=== PATIENT | male | born 1980 | race Caucasian/White ===

== ENCOUNTER 2021-03-03 12:22 | Observation (INO) | payer BC, SELFPAY ==
[2021-03-03] VITALS (10 sets, daily range): BP systolic 104–146; BP diastolic 65–86; PULSE 73–93; RESP 14–18; TEMP 36.6–37.3; O2SAT 93–98
[2021-03-03] MEDS: Normal Saline 1,000 ML 1000 ML IV (13:00)
--- NOTE | 2021-03-03 13:01 | ED.GENADUL_ITS ---
Discharge Plan Disposition Patient Disposition: [facility] INPATIENT Condition: Stable Discharge Details Clinical Impression: Intractable back pain Admit Date/Time: 03/03/21 16:42 Admit Provider: Corwin Pelayo Attending Provider: Corwin Pelayo Primary Care Provider: None,None ED Provider: Kaya Carrillo Discharge Data Discharge Date/Time-TO BE ENTERED AT DEPARTURE: 03/03/21 17:30 Medical Decision Making 41-year-old male with history of kidney stones presents with lower back pain for the past 5 days that is worse with movement. Denies any fever, vomiting or urinary symptoms. No cauda equina symptoms. Patient appears uncomfortable. He has reproducible pain with any movement in the wheelchair. He has bilateral paraspinal tenderness in the lumbar and sacral region. No focal deficits. Neurovascular intact. Suspect his etiology is most likely musculoskeletal but also consider kidney stones. Will place an IV, bolus IV fluids, screening labs, urinalysis, CT renal colic. Will give Toradol, Decadron, Valium and reassess. Patient reassessed and no improvement in pain. Will give a dose of morphine. Labs reviewed. Normal white blood cell count and electrolytes. Normal renal function. Urinalysis notes blood but no infection. CT reviewed and negative. Patient reassessed and no improvement in pain. Patient given a dose of Dilaudid and Valium and no improvement. Attempted to ambulate but unable. Patient had severe pain with even attempting to lift the head of the stretcher up. Patient is unable to even move in the bed without severe pain. He is still moving all of his extremities and no cauda equina symptoms or focal deficits. Will admit for intractable back pain for pain control and PT evaluation. Case discussed with hospitalist accepts patient for admission. Order an additional dose of Dilaudid, dose of Valium IV and another dose of Toradol IV. Patient is agreeable with plan for admission. Medical Records Medical records reviewed: Yes I reviewed the patient's medical records. Imaging Data Radiologic Study: Radiologist's impression: CT Abdomen And Pelvis Without Contrast Exam date and time: 03/03/2021 1:32 PM Age: 41 years old Clinical indication: Other: Lower back pain, h/o kidney stone, R/O stone, assess lumbar spine; Patient HX: Lower back pain, h/o kidney stone, R/O stone, assess lumbar spine TECHNIQUE: Imaging protocol: Computed tomography of the abdomen and pelvis without contrast. COMPARISON: No relevant prior studies available. FINDINGS: Lungs: The visualized lung bases are clear. Liver: Mild generalized hepatic steatosis. Anterior inferior right liver simple 1.4 cm oval hepatic cyst. Gallbladder and bile ducts: Normal. No calcified stones. No ductal dilation. Pancreas: Normal. No ductal dilation. Spleen: Normal. No splenomegaly. Adrenal glands: Normal. No mass. Kidneys and ureters: No renal, ureteral, or urinary bladder calculus. No hydronephrosis. Stomach and bowel: Sigmoid diverticulosis without evidence for acute diverticulitis. No bowel obstruction. Appendix: Appendix is normal in caliber. No periappendiceal edema. No findings to suggest acute appendicitis. Intraperitoneal space: Unremarkable. No free air. No significant fluid collection. Vasculature: Unremarkable. No abdominal aortic aneurysm. Lymph nodes: Unremarkable. No enlarged lymph nodes. Urinary bladder: Unremarkable as visualized. Reproductive: Unremarkable as visualized. Bones/joints: Five non rib-bearing lumbar vertebral bodies identified. No spondylolysis or spondylolisthesis. The vertebral body heights are preserved. No acute compression fracture. The disc spaces are well preserved. No lytic or blastic osseous lesion. Incidental note is made of a sclerotic bone island in the right ilium and additional punctate bone islands in the left ilium. Soft tissues: Unremarkable. IMPRESSION: 1. No acute intra-abdominal or pelvic finding. 2. No acute osseous findings in the lumbar spine. Lab Data Lab results reviewed: Yes I reviewed the patient's lab results. Labs: 03/03/21 13:05 Urine - Reflex from Ua Urine Culture - Pending Laboratory Tests Range/Units 03/03/21 03/03/21 03/03/21 12:45 12:45 13:05 WBC (4.4-10.8) 10^3/uL 7.42 RBC (4.36-5.78) 10^6/uL 5.24 Hgb (13.5-17.5) g/dL 15.3 Hct (40.0-50.0) % 46.1 MCV (80-95) fL 88.0 MCH (27.0-33.0) pg 29.2 MCHC (32.0-36.0) % 33.2 RDW (11.8-14.1) % 12.5 Plt Count (130-400) 10^3/uL 276 MPV (8.0-11.0) fL 10.1 Immature Gran % 0.4 Neutrophils % 54.7 Lymphocytes % 34.2 Monocytes % 7.5 Eosinophils % 2.4 Basophils % 0.8 Nucleated RBC % % 0 Absolute Neutrophils (1.2-6.7) 10^3/uL 4.05 Absolute Lymphocytes (1.2-3.4) 10^3/uL 2.54 Absolute Monocytes (0.1-0.8) 10^3/uL 0.56 Absolute Eosinophils (0.0-0.7) 10^3/uL 0.18 Absolute Basophils (0.0-0.2) 10^3/uL 0.06 Sodium (136-145) mmol/L 141 Potassium (3.5-5.1) mmol/L 4.2 Chloride (98-107) mmol/L 104 Carbon Dioxide (21.0-32.0) mmol/L 26.9 Anion Gap (3-11) mmol/L 10.1 BUN (7-18) mg/dL 10 Creatinine (0.70-1.30) mg/dL 1.1 Estimated GFR/1.73 m2 (mL/min/1.73m2) >= 60.00 Glucose (74-106) mg/dL 99 Calcium (8.5-10.1) mg/dL 9.2 Total Bilirubin (0.2-1.0) mg/dL 0.4 AST (15-37) U/L 20 ALT (16-63) U/L 52 Alkaline Phosphatase (46-116) U/L 81 Total Protein (6.4-8.2) g/dL 7.5 Albumin (3.4-5.0) g/dL 4.4 Lipase (73-393) U/L 82 Urine Color (Yellow) Yellow Urine Clarity (Clear) Clear Urine pH (5-8) 5.5 Ur Specific [place] (1.005-1.025) >= 1.030 H Urine Protein (Negative) mg/dL Negative Urine Ketones (Negative) mg/dL Negative Urine Blood (Negative) Small H Urine Nitrite (Negative) Negative Urine Bilirubin (Negative) Negative Urine Urobilinogen (Up TO 0.2) EU/dL 0.2 Ur Leukocyte Esterase (Negative) Negative Urine RBC (0-2) HPF 5-10 H Urine WBC (0-5) HPF 0-2 Ur Epithelial Cells (Negative) HPF Few Urine Crystals (Negative) HPF Negative Urine Bacteria (Negative) HPF Few Urine Casts (Negative) LPF Negative Urine Mucus (Negative) Heavy Ur Culture Indicated? Yes Urine Glucose (Negative) mg/dL Negative HPI General Mode of arrival: wheelchair . Date/Time Provider Initiated Documentation: 03/03/21 12:55 . Limitations to Documentation: no limitations . Information obtained by: patient . HPI Narrative: Patient is a 41-year-old male with a history of kidney stones who presents with lower back pain for the past 5 days. Patient states his pain is across his lower back and into his upper buttocks bilaterally. He denies any radiation of pain to his legs, leg weakness or numbness, bowel or bladder incontinence, saddle anesthesia. He denies any known injury. He states his pain is worse with movement and walking and states he has been unable to walk due to pain for the past few hours. He denies fever, nausea, vomiting, abdominal pain, dysuria, hematuria or urinary frequency. Related Data Home Medications Medication Instructions Recorded Confirmed Unknown [No Known Home Meds] 02/17/17 03/03/21 celecoxib [Celebrex] 200 mg PO BID #60 cap 03/04/21 diazepam 5 mg PO QID PRN PRN #20 tab 03/04/21 diclofenac sodium [Voltaren 4 g TOPICAL QID #100 g 03/04/21 Arthritis Pain] Previous Rx's Medication Instructions Recorded celecoxib [Celebrex] 200 mg PO BID #60 cap 03/04/21 diazepam 5 mg PO QID PRN PRN #20 tab 03/04/21 diclofenac sodium [Voltaren 4 g TOPICAL QID #100 g 03/04/21 Arthritis Pain] Allergies Allergy/AdvReac Type Severity Reaction Status Date / Time fish Allergy Intermediate Nausea Uncoded 03/03/21 12:39 General Stated Complaint: FlankPain HEIDY: 3 Review of Systems All systems reviewed & are unremarkable except as noted in HPI and below Constitutional Constitutional: Reports as per HPI, Denies chills and Denies fever(s) Eyes Eyes: Denies blurry vision ENT Ears, Nose, Mouth, and Throat: Denies dizziness, Denies sore throat and Denies throat swelling Cardiovascular Cardiovascular: Denies chest pain and Denies dyspnea Respiratory Respiratory: Denies cough and Denies dyspnea Gastrointestinal Gastrointestinal: Denies abdominal pain, Denies diarrhea and Denies vomiting Genitourinary Genitourinary: Denies hematuria and Denies dysuria Musculoskeletal Musculoskeletal: Reports back pain and Denies numbness Integumentary/Breasts Skin/Breast: Denies lesions and Denies rash Neurologic Neurologic: Denies dizziness, Denies localized weakness and Denies numbness Allergic/Immunologic Allergic/Immunologic: Denies throat swelling [facility] Medical History Kidney stones Surgical History No significant past surgical history Social History Smoking/Tobacco Use Status: Never Smoking risk assessment performed?: Yes Drug use: Never Substance use type: does not use Do you feel safe in your relationship?: Yes Exam Const General: cooperative, uncomfortable and no acute distress Orientation: alert, awake and oriented x3 HENMT Head: normal to inspection Face and sinus: normal facial exam Eyes General: appearance normal, both eyes and all related structures EOM: EOM intact bilaterally Neck Neck: normal visual inspection and No submandibular swelling Lymphatic: no lymphadenopathy noted Chest Chest: normal inspection of the chest and no tenderness Resp Effort & Inspection: normal respiratory effort and able to speak in complete sentences Auscultation: clear to auscultation bilaterally Cardio Rate: regular rate Rhythm: regular rhythm GI Inspection: normal to inspection Palpation: soft, not firm, not rigid and nontender Auscultation: normal bowel sounds Back/Spine/Pelvis Thoracic/Lumbar Spine: thoracic and lumbar spine normal to inspection, paraspinal tenderness (b/l lumbar), No thoracic spinal tenderness and No lumbar spinal tenderness Sacrum: tenderness bilaterally Skin General skin exam: no rashes or lesions noted Neuro General: patient alert, patient awake and patient oriented x3 Cognition: normal cognition Speech: speech normal Motor: muscle tone normal throughout and strength 5/5 throughout Sensory Exam: no sensory deficits noted DTR's: Rt Patellar: 1+, Lt Patellar: 1+, Rt Ankle: 1+ and Lt Ankle: 1+ Plantar Reflexes: Equivocal: bilateral (negative babinski b/l) Extrem General: normal to inspection, full ROM, capillary refill normal, no calf tenderness bilaterally and no edema Other: B/L DP/PT pulses intact. Psych Appearance: grossly normal Mental Status: mental status grossly normal Speech and Movement: speech and movement normal Affect: normal affect Course Vital Signs Vital signs: Vital Signs Temperature 97.9 F 03/03/21 12:36 Pulse 87 03/03/21 12:36 Respiratory Rate 16 03/03/21 12:36 Blood Pressure 145/81 H 03/03/21 12:36 Pulse Oximetry 98 03/03/21 12:36 Temperature 97.9 F 03/03/21 12:36 Temperature Source Skin 03/03/21 12:36 Pulse 87 03/03/21 12:36 Respiratory Rate 16 03/03/21 12:36 Respiratory Effort Non-Labored 03/03/21 12:36 Blood Pressure 145/81 H 03/03/21 12:36 Blood Pressure Position Sitting 03/03/21 12:36 Pulse Oximetry 98 03/03/21 12:36 Oxygen Delivery Method Room Air 03/03/21 12:36 Oxygen Flow Rate 0 03/03/21 12:36 Pain Level 9 03/03/21 12:40
[2021-03-03 13:19] LABS: Abs Immature Grans 0.03 10^3/uL (0.0-0.06); Absolute Basophil Count 0.06 10^3/uL (0.0-0.2); Absolute Eosinophil Count 0.18 10^3/uL (0.0-0.7); Absolute Lymphocyte Count 2.54 10^3/uL (1.2-3.4); Absolute Monocyte Count 0.56 10^3/uL (0.1-0.8); Absolute Neutrophil Count 4.05 10^3/uL (1.2-6.7); Basophils % 0.8; Eosinophils % 2.4; HCT 46.1 % (40.0-50.0); HGB 15.3 g/dL (13.5-17.5); Immature Grans % 0.4; Lymphocytes % 34.2; MCH 29.2 pg (27.0-33.0); MCHC 33.2 % (32.0-36.0); MPV 10.1 fL (8.0-11.0); Monocytes % 7.5; Neutrophils % 54.7; Nucleated RBC 0 %; Platelet Count 276 10^3/uL (130-400); RBC 5.24 10^6/uL (4.36-5.78); RDW 12.5 % (11.8-14.1); RDW-SD 40.4 fL; WBC 7.42 10^3/uL (4.4-10.8)
[2021-03-03 13:20] LABS: Bilirubin Negative (Negative); Blood Small (Negative); Clarity Clear (Clear); Glucose Negative (Negative); Ketones Negative (Negative); Leukocyte Esterase Negative (Negative); Nitrite Negative (Negative); Specific Gravity >= 1.030 (1.005-1.025); Urobilinogen 0.2 EU/dL (Up TO 0.2); pH 5.5 (5-8)
[2021-03-03 13:26] LABS: Bacteria Few HPF (Negative); Crystals Negative HPF (Negative); Epithelial Cells Few HPF (Negative); Mucus Heavy (Negative); WBC 0-2 HPF (0-5)
[2021-03-03 13:27] LABS: C & S Indicated? Yes; Casts Negative LPF (Negative)
--- NOTE | 2021-03-03 13:30 | DI.CT_ITS ---
Exam(s) CT RENAL COLIC WO EXAM: CT RENAL COLIC WO CLINICAL HISTORY: lower back pain, h/o kidney stone. TECHNIQUE: Imaging Protocol: Axial computed tomography images with coronal and sagittal reformatted images were created and reviewed CONTRAST MATERIAL: Intravenous: none Oral: None COMPARISON: CT RENAL COLIC WO CONTRAST from 05/25/2012 FINDINGS: VISUALIZED LUNG BASES: No nodules nor pleural effusions evident. ABDOMEN: There is no ascites. LIVER: There is a well-defined hypodensity in the right hepatic lobe measuring 13 x 12 millimeters wh ich is probably a benign cyst. GALLBLADDER/BILIARY: No obvious gallbladder pathology. CBD is not dilated. PANCREAS: No evidence of pancreatic mass nor dilatation of the pancreatic duct. SPLEEN: Spleen is not enlarged. No obvious intrasplenic lesions. ADRENALS: There are no significant adrenal masses. KIDNEYS:No cysts evident. No solid renal masses. No calculi nor hydronephrosis. . ABDOMINAL AORTA: Abdominal aorta is not enlarged. LYMPH NODES: There is no retroperitoneal nor paraaortic adenopathy. ABDOMINAL WALL: No evidence of significant anterior abdominal wall hernia. GI: There is no evidence of bowel obstruction, free air, nor abscess. PELVIS: LYMPH NODES: There is no intrapelvic nor inguinal adenopathy. GI: No evidence of appendicitis.No evidence of sigmoid diverticulitis. URINARY BLADDER: No calculi nor obvious masses evident REPRODUCTIVE: Prostate and seminal vesicles appear unremarkable. OSSEOUS: No significant osseous lesions. IMPRESSION: 1. Small solitary 13 x 12 millimeter finding in the right hepatic lobe which is probably a benign cys t. No other significant focal hepatic findings. 2. No other findings in the abdomen and pelvis. 3. No ascites. No lymphadenopathy. RADIATION DOSE DELIVERED: 1,385.8mGy.cm Total DLP DATA REPOSITORY: All CT scans at this facility are submitted to the National Radiology Data Registry (NRDR) Dose Index Registry (DIR) with the [employer] (ACR). RADIATION OPTIMIZATION: All CT scans at this facility use at least one of these dose optimization te chniques: automated exposure control; mA and/or kV adjustment per patient size (includes targeted exa ms where dose is matched to clinical indication); or iterative reconstruction.
[2021-03-03 13:32] LABS: ALT 52 U/L (16-63); AST 20 U/L (15-37); Albumin 4.4 g/dL (3.4-5.0); Alkaline Phosphatase 81 U/L (46-116); Anion Gap 10.1 mmol/L (3-11); BUN 10 mg/dL (7-18); Bilirubin, Total 0.4 mg/dL (0.2-1.0); CO2 26.9 mmol/L (21.0-32.0); CREATININE 1.1 mg/dL (0.70-1.30); Calcium 9.2 mg/dL (8.5-10.1); Chloride 104 mmol/L (98-107); Glucose 99 mg/dL (74-106); Lipase 82 U/L (73-393); Potassium 4.2 mmol/L (3.5-5.1); Sodium 141 mmol/L (136-145); Total Protein 7.5 g/dL (6.4-8.2)
[2021-03-03] MEDS: diazePAM 5 MG TAB PO ×2 (13:37→15:05)
[2021-03-03] MEDS: Ketorolac 15 MG/ML VIAL IVP ×2 (13:38→16:43)
[2021-03-03] MEDS: Dexamethasone 10 MG/ML VIAL IVP (13:39)
[2021-03-03] MEDS: MORPHine 4 MG/ML SYR IVP (14:37)
[2021-03-03] MEDS: HYDROmorphone 2 MG/ML VIAL 1 MG IVP ×2 (15:05→16:45)
--- NOTE | 2021-03-03 15:06 | DI.VRAD_ITS ---
PROCEDURE INFORMATION: Exam: CT Abdomen And Pelvis Without Contrast Exam date and time: 03/03/2021 1:32 PM Age: 41 years old Clinical indication: Other: Lower back pain, h/o kidney stone, R/O stone, assess lumbar spine; Patient HX: Lower back pain, h/o kidney stone, R/O stone, assess lumbar spine TECHNIQUE: Imaging protocol: Computed tomography of the abdomen and pelvis without contrast. COMPARISON: No relevant prior studies available. FINDINGS: Lungs: The visualized lung bases are clear. Liver: Mild generalized hepatic steatosis. Anterior inferior right liver simple 1.4 cm oval hepatic cyst. Gallbladder and bile ducts: Normal. No calcified stones. No ductal dilation. Pancreas: Normal. No ductal dilation. Spleen: Normal. No splenomegaly. Adrenal glands: Normal. No mass. Kidneys and ureters: No renal, ureteral, or urinary bladder calculus. No hydronephrosis. Stomach and bowel: Sigmoid diverticulosis without evidence for acute diverticulitis. No bowel obstruction. Appendix: Appendix is normal in caliber. No periappendiceal edema. No findings to suggest acute appendicitis. Intraperitoneal space: Unremarkable. No free air. No significant fluid collection. Vasculature: Unremarkable. No abdominal aortic aneurysm. Lymph nodes: Unremarkable. No enlarged lymph nodes. Urinary bladder: Unremarkable as visualized. Reproductive: Unremarkable as visualized. Bones/joints: Five non rib-bearing lumbar vertebral bodies identified. No spondylolysis or spondylolisthesis. The vertebral body heights are preserved. No acute compression fracture. The disc spaces are well preserved. No lytic or blastic osseous lesion. Incidental note is made of a sclerotic bone island in the right ilium and additional punctate bone islands in the left ilium. Soft tissues: Unremarkable. IMPRESSION: 1. No acute intra-abdominal or pelvic finding. 2. No acute osseous findings in the lumbar spine. Dictated and Authenticated by: Marielena Martin MD. Ordering:ROSA Kirkpatrick MD
[2021-03-03] MEDS: diazePAM 10 MG/2 ML SYR 5 MG IVP (16:47)
[2021-03-03 17:05] LABS: Source Nasal/Nares
--- NOTE | 2021-03-03 17:09 | HPE_ITS ---
Date of service: 03/03/21 Time of Service: 17:09 Assessment and Plan Assessment and plan (1) Intractable back pain: Status: Acute Assessment and plan: referred to observation pain management: schedule apap, toradol, lidocaine patches, muscle skeletal relaxers, steroids. heating pad PT consult discussed with DR Pelayo History of Present Illness History of Present Illness Chief Complaint: low back pain Narrative: several day history of low back pain, thought was similar to previous history of stones but pain not consistent with renal colic on exam. work up in the ED negative for stones and unremarkable. thought to be muscoloskeletal. no signs of cauda equina. he is given multiple medications including toradol, valium, morphine, dilaudid, decadron with no improvement in symptoms. he is unable to be reambulated so hospitalist is asked to refer to observation. Review of Systems All systems reviewed & are unremarkable except as noted in HPI and below Constitutional Constitutional: Denies fever(s) Gastrointestinal Gastrointestinal: Denies constipation, Denies fecal incontinence and Denies diarrhea Genitourinary Genitourinary: Denies dysuria, Denies urinary frequency, Denies urinary hesitancy, Denies urinary incontinence and Denies urinary urgency Musculoskeletal Musculoskeletal: Reports back pain [facility] Medical History Kidney stones Surgical History No significant past surgical history Social History Smoking/Tobacco Use Status: Never Smoking risk assessment performed?: Yes Drug use: Never Substance use type: does not use Do you feel safe in your relationship?: Yes Meds Allergies and Home Medications Allergies Allergy/AdvReac Type Severity Reaction Status Date / Time fish Allergy Intermediate Nausea Uncoded 03/03/21 12:39 Home Medications Medication Instructions Recorded Confirmed Type Unknown [No Known Home Meds] 02/17/17 03/03/21 History celecoxib [Celebrex] 200 mg PO BID #60 cap 03/04/21 Rx diazepam 5 mg PO QID PRN PRN #20 tab 03/04/21 Rx diclofenac sodium [Voltaren 4 g TOPICAL QID #100 g 03/04/21 Rx Arthritis Pain] Exam Const General: cooperative, uncomfortable and no acute distress Orientation: alert, awake and oriented x3 HENMT Head: normal to inspection Face and sinus: normal facial exam Eyes General: appearance normal, both eyes and all related structures Neck Neck: normal visual inspection and No submandibular swelling Lymphatic: no lymphadenopathy noted Chest Chest: normal inspection of the chest and no tenderness Resp Effort & Inspection: normal respiratory effort Auscultation: clear to auscultation bilaterally Cardio Rate: regular rate Rhythm: regular rhythm GI Inspection: normal to inspection Palpation: soft and nontender Auscultation: normal bowel sounds Back/Spine/Pelvis Thoracic/Lumbar Spine: thoracic and lumbar spine normal to inspection, paraspinal tenderness (b/l lumbar), No thoracic spinal tenderness and No lumbar spinal tenderness Sacrum: tenderness bilaterally Skin General skin exam: no rashes or lesions noted Neuro General: patient alert, patient awake and patient oriented x3 Cognition: normal cognition Speech: speech normal Motor: muscle tone normal throughout and strength 5/5 throughout Sensory Exam: no sensory deficits noted DTR's: Rt Patellar: 1+, Lt Patellar: 1+, Rt Ankle: 1+ and Lt Ankle: 1+ Plantar Reflexes: Equivocal: bilateral (negative babinski b/l) Extrem General: normal to inspection, full ROM, capillary refill normal, no calf tenderness bilaterally and no edema Psych Appearance: grossly normal Mental Status: mental status grossly normal Speech and Movement: speech and movement normal Affect: normal affect Results Labs Result diagrams: 03/03/21 12:45 03/03/21 12:45 Labs: Laboratory Results - last 24 hr 03/03/21 03/03/21 03/03/21 12:45 12:45 13:05 WBC 7.42 RBC 5.24 Hgb 15.3 Hct 46.1 MCV 88.0 MCH 29.2 MCHC 33.2 RDW 12.5 Plt Count 276 MPV 10.1 Immature Gran % 0.4 Neutrophils % 54.7 Lymphocytes % 34.2 Monocytes % 7.5 Eosinophils % 2.4 Basophils % 0.8 Nucleated RBC % 0 Absolute Neutrophils 4.05 Absolute Lymphocytes 2.54 Absolute Monocytes 0.56 Absolute Eosinophils 0.18 Absolute Basophils 0.06 Sodium 141 Potassium 4.2 Chloride 104 Carbon Dioxide 26.9 Anion Gap 10.1 BUN 10 Creatinine 1.1 Estimated GFR/1.73 m2 >= 60.00 Glucose 99 Calcium 9.2 Total Bilirubin 0.4 AST 20 ALT 52 Alkaline Phosphatase 81 Total Protein 7.5 Albumin 4.4 Lipase 82 Urine Color Yellow Urine Clarity Clear Urine pH 5.5 Ur Specific [place] >= 1.030 H Urine Protein Negative Urine Ketones Negative Urine Blood Small H Urine Nitrite Negative Urine Bilirubin Negative Urine Urobilinogen 0.2 Ur Leukocyte Esterase Negative Urine RBC 5-10 H Urine WBC 0-2 Ur Epithelial Cells Few Urine Crystals Negative Urine Bacteria Few Urine Casts Negative Urine Mucus Heavy Ur Culture Indicated? Yes Urine Glucose Negative COVID-19 Source 03/03/21 17:00 WBC RBC Hgb Hct MCV MCH MCHC RDW Plt Count MPV Immature Gran % Neutrophils % Lymphocytes % Monocytes % Eosinophils % Basophils % Nucleated RBC % Absolute Neutrophils Absolute Lymphocytes Absolute Monocytes Absolute Eosinophils Absolute Basophils Sodium Potassium Chloride Carbon Dioxide Anion Gap BUN Creatinine Estimated GFR/1.73 m2 Glucose Calcium Total Bilirubin AST ALT Alkaline Phosphatase Total Protein Albumin Lipase Urine Color Urine Clarity Urine pH Ur Specific [place] Urine Protein Urine Ketones Urine Blood Urine Nitrite Urine Bilirubin Urine Urobilinogen Ur Leukocyte Esterase Urine RBC Urine WBC Ur Epithelial Cells Urine Crystals Urine Bacteria Urine Casts Urine Mucus Ur Culture Indicated? Urine Glucose COVID-19 Source Nasal/Nares Last Vital Signs Temp 36.6 C 03/03/21 15:19 Pulse 80 03/03/21 17:04 Resp 15 03/03/21 17:04 BP 115/72 03/03/21 17:04 Pulse Ox 95 03/03/21 17:04
[2021-03-03 17:57] LABS: COVID-19 PCR Negative (Negative)
[2021-03-03] MEDS: Baclofen 10 MG TAB PO (21:01)
[2021-03-03] MEDS: Acetaminophen 325 MG TAB 650 MG PO (21:01)
[2021-03-03] MEDS: Lidocaine 5% Patch 2 PATCH TP (21:01)
[2021-03-04 03:27] VITALS: BP 106/68; PULSE 89; RESP 18; TEMP 37.3; O2SAT 94
[2021-03-04] MEDS: Ketorolac 30 MG/ML VIAL IVP (05:19)
[2021-03-04 05:24] VITALS: BP 125/80; PULSE 76; RESP 18; TEMP 36.2; O2SAT 95
[2021-03-04 07:35] VITALS: BP 112/78; PULSE 71; RESP 18; TEMP 36.7; O2SAT 92
[2021-03-04] MEDS: Baclofen 10 MG TAB PO (08:40)
[2021-03-04] MEDS: Acetaminophen 325 MG TAB 650 MG PO ×2 (08:40→12:11)
--- NOTE | 2021-03-04 08:42 | PDOC.CMIN ---
- If Service Date Differs Date of service: 03/04/21 Time of Service: 08:42 Care Management Initial Assess REASON FOR HOSPITALIZATION:: Intractable low back pain PAST MEDICAL HISTORY/PAST SURGICAL HISTORY:: Kidney Stones PREVIOUS FUNCTIONAL STATUS/SOCIAL/FAMILY SUPPORTS:: Amilcar lives in [place] with his and kids. 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 CURRENT FUNCTIONAL STATUS:: Amilcar was sitting up in the chair when CM met with him. He continues to have back pain which is exacerbated by positional changes. He anticipates going home today. ADVANCE DIRECTIVES:: None on file Has patient been provided with info about the portal/API?: Yes Did the patient sign up for the portal?: No CODE STATUS:: Full Code INSURANCE COVERAGE / FINANCIAL ISSUES:: [employer] CURRENT HOME/COMMUNITY SERVICES/EQUIPMENT:: None PRIMARY CARE PHYSICIAN:: None POTENTIAL DISCHARGE NEEDS:: Establish PCP PATIENT/FAMILY EDUCATION NEEDS:: Discharge education, limitations and follow up plan of care, including ask me three and self management. ANTICIPATED BARRIERS TO DISCHARGE:: None identified TRANSPORTATION:: Via private vehicle with family PLAN:: Amilcar will be discharged home when medically clear. Amilcar is agreeable to physical therapy and prefers [facility]. Amilcar does not currently have a PCP and will need to follow up with a provider after discharge. CM continues to support.
--- NOTE | 2021-03-04 09:40 | IN_ITS ---
Date of service: 03/04/21 Time of Service: 09:46 PT Notes Visit Reasons: Intractable Low Back Pain Physical Therapy Inpatient Initial Evaluation Date: 03/04/2021 Referring Doctor: Kathy Rouse NP PT Orders: PT CONSULT: Eval/treat. Precautions: Fall. Standard. Activity as tolerated. Back precautions. Patient Profile/Admitting Diagnosis: Yuliya is a 41-year-old male who presented to the ED on 03/03/2021 with diagnosis of intractable low back pain that is worse with movement. PMHX: Medical History Kidney stones Surgical History No significant past surgical history Social History/Home Situation: Lives with in a private home. Independent with all aspects of ADLs prior to admission. 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 Equipment Owned/DME: None Subjective: Amilcar indicates that his symptoms started last Thursday after he came home from work but subsided the following day with intake of an anti- inflammatory which enabled him to go back to work and to manage okay until Thursday. He indicates no trauma, no heavy lifting, nor activity different from his routine prior to the incident. On Thursday he mowed his lawn and later in the day, symptoms exacerbated. Thinking that he may be having some kidney stones again, him and his went to the ED for immediate intervention. Today, he is supine in bed and any changes in position causes pain. Nurse states that he has been given a regimen of pain pills and Baclofen early this morning minimize symptoms. Amilcar is willing to try participate in today's assessment but is not sure how much he will be able to do. Objective: General Observation: Appears to be highly anxious about moving. Obese. Spine with no deviation from midline in posterior view and no deviation from upright positioning from the lateral view. Normal thoracic and lumbar curvatures. Mental Status: Alert and oriented as to person, place, time, and purpose. Able to pay attention, focus, and respond appropriately. Pain: shoots up to 10/10 in mid back to low back muscles with movement transitions Palpation: R low thoracic and lumbar paraspinals in extreme guarding mode and hypersensitive to touch ROM: Right Upper Extremity: Shoulder Flexion WFL. Shoulder abduction WFL. Elbow flexion WFL. Wrist flexion WFL. Functional opening and closing of hand WFL. Left Upper Extremity: Shoulder Flexion WFL. Shoulder abduction WFL. Elbow flexion WFL. Wrist flexion WFL. Functional opening and closing of hand WFL. Right Lower Extremity: Straight leg raise to 45 degrees. Hip abduction WFL. Knee flexion WFL. Ankle dorsiflexion WFL. Ankle plantarflexion WFL. Left Lower Extremity: Straight leg raise to 30 degrees. Hip abduction WFL. Knee flexion WFL. Ankle dorsiflexion WFL. Ankle plantarflexion WFL. Strength: Right Upper Extremity: Shoulder flexors 5/5. Shoulder abductors 5/5. Elbow flexors 5/5. Elbow extensors 5/5. Cloth Tester Quality strong. Left Upper Extremity: Shoulder flexors 5/5. Shoulder abductors 5/5. Elbow flexors 5/5. Elbow extensors 5/5. Cloth Tester Quality strong. Right Lower Extremity: Hip flexors 3-/5. Hip abductors 4/5. Knee flexors 4/5. Knee extensors 4-/5. Ankle dorsiflexors 4-/5. Ankle plantarflexors 4-/5. Left Lower Extremity: Hip flexors 3-/5. Hip abductors 4/5. Knee flexors 4/5. Knee extensors 4-/5. Ankle dorsiflexors 4-/5. Ankle plantarflexors 4-/5. Bed Mobility/Transfers: Log rolling to left modified independent but with pain level 6-7/10 during movement with minimal cues given for slowly transitioning into position and correct technique Left side-lying to sit modified independent with minimal cues for slowly transitioning into position and correct technique Sit to stand with contact-guard assist with minimal cues for slowly transitioning into position and correct technique Stand to sit with standby assist with minimal cues for slowly transitioning into position and correct technique Bed to reclining chair with contact-guard assist with minimal cues for slowly transitioning into position and correct technique THERA EX: Instructed patient on posterior pelvic tilting, slow alternate knee to chest, and slow pelvic rock activities combining deep breathing exercises. Emphasized abdominal bracing during activity with careful instruction to transition into each movement slowly and to transition out of each slowly to reduce ongoing spasm. Deferred manual therapy until later today with LAB SUPPORT SERVICE TECH. Gait: Instructed patient with level surface ambulation of 100 feet requiring contact-guard assist. Archana decreased. Steps hesitant initially but later appeared more typical of his walking pattern, he states. Reports increase pressure in back towards the end with pain increasing to 8-9/10. Denies dizziness. No LOB. Patient was agreeable to sitting on bedside recliner after ambulation activity and to having electric heating pad placed on his R low back muscles. Balance: Static Sitting: Good Dynamic Sitting: Fair Static Standing: Fair Dynamic Standing: fair Special Tests: Mobility Limitations Standardized Measure [facility] AM-PAC 6 clicks Basic Mobility Inpatient Short Form: Raw Score: 18 CMS Score: 47% deficit PROVOCATIVE TESTS: SLR limited to 30 degrees on the L and 45 degrees on the R due to pain level, no radiation of pain to B LE reported. Dorsiflexion of foot increases pain in low back but no radiation of pain. Unable to do Tripod Test due to pain level upon sitting. Unable to do Femoral stretch test due to pain level with positional change. NEUROLOGIC EXAM: L4 limited due to pain level. Patient is able to bend at the knee and hip on the same side slowly and is able to resist hip and knee extension simultaneously against moderate resistance. L5 able to dorsiflex foot and toes to moderate resistance. S1 able to plantarflex B feet against moderate resistance No sensory deficits seen on L4, L5, S1 dermatome. Informed Consent/Education: Patient was instructed in purpose of PT consult and plan of care. Agreeable to proceed with established PT POC to achieve personal goals. Assessment: R thoracic and lumbar paraspinal strain is causing limitations in mobility ADL performance. Weakness in B hips and knees highly influenced by pain level. With a regimen of pain pills and muscle relaxant patient tolerated and completed mobility assessment with moderate level difficulty. Patient will benefit from use of a FWW to temporarily offload the trunk and help minimize pain. 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 Further low back assessment limited today by patient's pain level with positional changes. OP PT may need to reassess further once pain level subsides some more to rule out impingement syndrome. Patient presents with clinical signs and symptoms consistent with current/admitting diagnoses that have resulted to mobility limitations, gait instability, generalized weakness, and overall ADL decline as demonstrated by the following impairment level findings: 1. Decreased strength to B hip and knee major muscle groups 2. Impaired sitting/standing balance 3. Impaired activity tolerance 4. Limitation of joint range of motion in hips 5. R thoracic and lumbar paraspinals in significant spasm Impairments are contributing to the following functional limitations: 1. Decline in bed mobility skills 2. Decline in transfer skills 3. Difficulty with ambulation without assistive device 4. Increased completion time for mobility ADL performance 5. Increased risk for falls 6. Inability to return to work Patient is assessed as a 27663 complexity based on the following: History: 41-year-old male with past medical history as indicated above Examination: Demonstrable impairment in strength, balance, and mobility level with underlying impairments and functional limitations as exhibited above as well as deficit score of 47% utilizing the [facility] Mobility I npatient Short Form Presentation: Evolving Decision Makin moderate complexity Goals: Goals X1 week 1. Supine-Sit independent 2. Sit-Supine independent 3. Sit-Stand independent 4. Stand-Sit independent with FWW 5. Bed-Chair independent with FWW 6. Chair-Bed independent with FWW 7. Independent gait on level surface with use of FWW for at least 100 feet without report of pain nor dyspnea Plan of Care/Treatment Plan: 1-2x/day, 7 days/week x 1 week. Plan of care has been reviewed with the LAB SUPPORT SERVICE TECH providing the service under Physical Therapy direction. Initiate Physical Therapy intervention for pain management as needed, strengthening, bed mobility, transfers, gait, stairs, balance training, and use of assistive device. DISCHARGE RECOMMENDATIONS: OP PT to minimiz symptoms and facilitate return to work. Will require FWW to go home to temporarily off load back and to maximize independence with mobility performance at home. TREATMENT CODE/TIME: 11757 x 30 minutes, 98586 x 20 minutes, 00797 x 15 minutes beginning at 9:40 AM. Thank you for the opportunity to participate in the care of this patient. Janet Patel PT, DPT, CLT [facility] [place], [place]
[2021-03-04] MEDS: diazePAM 5 MG TAB PO (12:30)
--- NOTE | 2021-03-04 14:48 | DSE_ITS ---
Date of service: 03/04/21 Time of Service: 14:49 DS: Diagnosis Discharge Diagnosis (1) Intractable back pain: Start date: 03/04/21 Start time: 14:49 Status: Acute Asessment and Plan: Appears muscular. On the right lower side, with palpation patient has severe pain, cries out and jumps when pushing on that side of the muscle. He is appropriate for discharge. PT recommends walker. He would do well with valium for muscle spasms, will give celebrex for pain, and heat and ice intermittently. F/u with PCP in [address] Pelayo Discharge Plan Disposition Patient Disposition: HOME Condition: Stable Discharge Details Reason For Visit: Intractable Low Back Pain Admit Date/Time: 03/03/21 16:42 Admit Provider: Corwin Pelayo Attending Provider: oCrwin Pelayo Primary Care Provider: None,None Hospital Course Hospital Course: 41 y.o male admitted with intractable back pain. No known medical history. Labs in the ED negative. Asked to be admitted to M/s for further admission. Worked with PT he did well in certain positions, recommend walker when ambulating. Urine done with no leuko est or nitrate, urine cx negative. He felt the metholcarbonal really did not help and he is having severe back spasms. Changed to valium with good relief. Will also order celebrex and voltaren gel. Recommend f/u with PCP in 1 week. He denies CP, SOB, N/V/D. Home Meds and New Rx's Prescriptions: New diazepam 5 mg Tablet 5 mg PO QID PRN PRNQty: 20 RF: 0 celecoxib [Celebrex] 200 mg capsule 200 mg PO BID Qty: 60 RF: 0 diclofenac sodium [Voltaren Arthritis Pain] 1 % gel 4 g topical QID Qty: 100 RF: 0 No Action No Known Home Meds RF: 0 Discharge Instructions Instructions: Acute Low Back Pain (GEN), Back Pain (GEN) Additional Instructions: Follow up with PCP in 1 week Use heat and ice intermittently four times a day. Use them for 15 mins a piece Use walker for ambulation Recommend chiropractor once feeling better to help with back pain Activity:: Activity as Tolerated Equipment/Supplies:: Walker Diet:: As Tolerated Discharge Orders Discharge Orders: Discharge Order (Routine); Ordered 03/04/21 Ordered By: Rita Peralta DS: Summary Time Spent with Patient providing and/or coordinating discharge services: Less than 30 minutes Status at Discharge Functional status at discharge: uses cane/walker Overall status at discharge: patient is progressing back to baseline Mental Status: mental status grossly normal Speech and Movement: speech and movement normal Mood: congruent mood Affect: normal affect Exam Const General: cooperative, uncomfortable and no acute distress Orientation: alert, awake and oriented x3 HENMT Head: normal to inspection Face and sinus: normal facial exam Eyes General: appearance normal, both eyes and all related structures Neck Neck: normal visual inspection and No submandibular swelling Lymphatic: no lymphadenopathy noted Chest Chest: normal inspection of the chest and no tenderness Resp Effort & Inspection: normal respiratory effort Auscultation: clear to auscultation bilaterally Cardio Rate: regular rate Rhythm: regular rhythm GI Inspection: normal to inspection Palpation: soft and nontender Auscultation: normal bowel sounds Back/Spine/Pelvis Back: no CVA tenderness Thoracic/Lumbar Spine: thoracic and lumbar spine normal to inspection, paraspinal tenderness (right sided lumbar), No thoracic spinal tenderness and No lumbar spinal tenderness Sacrum: tenderness on the right Skin General skin exam: no rashes or lesions noted Wounds: no wounds Neuro General: patient alert, patient awake and patient oriented x3 Cognition: normal cognition Speech: speech normal Motor: muscle tone normal throughout and strength 5/5 throughout Sensory Exam: no sensory deficits noted DTR's: Rt Patellar: 1+, Lt Patellar: 1+, Rt Ankle: 1+ and Lt Ankle: 1+ Plantar Reflexes: Equivocal: bilateral (negative babinski b/l) Extrem General: normal to inspection, full ROM, capillary refill normal, no calf tenderness bilaterally and no edema Psych Appearance: grossly normal Mental Status: mental status grossly normal Speech and Movement: speech and movement normal Mood: congruent mood Affect: normal affect DS: Data Vitals/I&O Vitals and I&O: Vital Signs Temperature 36.7 C 03/04/21 07:35 Temperature Source Temporal Artery Scan 03/04/21 07:35 Pulse 71 03/04/21 07:35 Pulse Rhythm Regular 03/04/21 08:15 Respiratory Rate 18 03/04/21 07:35 Respiratory Effort Non-Labored 03/04/21 08:15 Respiratory Depth Normal 03/04/21 08:15 Respiratory Pattern Normal 03/04/21 08:15 Blood Pressure 112/78 03/04/21 07:35 Blood Pressure Position Sitting 03/03/21 12:36 Pulse Oximetry 92 03/04/21 07:35 Oxygen Delivery Method Room Air 03/04/21 07:35 Oxygen Flow Rate 0 03/04/21 07:35 Pain Level 8 03/04/21 12:30 Intake & Output 03/03/21 03/04/21 03/04/21 23:59 11:59 23:59 Intake Total 1210 / 1210 210 / 210 Output Total 1050 / 1050 600 / 925 325 / 925 Balance 160 / 160 -390 / -715 -325 / -715 Weight 109 kg Intake: IV 1010 / 1010 10 / 10 Oral 200 / 200 200 / 200 Output: Urine 1050 / 1050 600 / 925 325 / 925 Other: Urine Color Light Radha Light Radha Straw Urine Appearance Cloudy Clear Clear Urine Odor Normal Normal Voiding Methods Urinal Urinal Data Completed and Pending Completed studies during hospitalization [Text1]: PELVIS: LYMPH NODES: There is no intrapelvic nor inguinal adenopathy. GI: No evidence of appendicitis.No evidence of sigmoid diverticulitis. URINARY BLADDER: No calculi nor obvious masses evident REPRODUCTIVE: Prostate and seminal vesicles appear unremarkable. OSSEOUS: No significant osseous lesions. IMPRESSION: 1. Small solitary 13 x 12 millimeter finding in the right hepatic lobe which is probably a benign cyst. No other significant focal hepatic findings. 2. No other findings in the abdomen and pelvis. 3. No ascites. No lymphadenopathy. Exam(s) PROCEDURE INFORMATION: Exam: CT Abdomen And Pelvis Without Contrast Exam date and time: 03/03/2021 1:32 PM Age: 41 years old Clinical indication: Other: Lower back pain, h/o kidney stone, R/O stone, assess lumbar spine; Patient HX: Lower back pain, h/o kidney stone, R/O stone, assess lumbar spine TECHNIQUE: Imaging protocol: Computed tomography of the abdomen and pelvis without contrast. COMPARISON: No relevant prior studies available. FINDINGS: Lungs: The visualized lung bases are clear. Liver: Mild generalized hepatic steatosis. Anterior inferior right liver simple 1.4 cm oval hepatic cyst. Gallbladder and bile ducts: Normal. No calcified stones. No ductal dilation. Pancreas: Normal. No ductal dilation. Spleen: Normal. No splenomegaly. Adrenal glands: Normal. No mass. Kidneys and ureters: No renal, ureteral, or urinary bladder calculus. No hydronephrosis. Stomach and bowel: Sigmoid diverticulosis without evidence for acute diverticulitis. No bowel obstruction. Appendix: Appendix is normal in caliber. No periappendiceal edema. No findings to suggest acute appendicitis. Intraperitoneal space: Unremarkable. No free air. No significant fluid collection. Vasculature: Unremarkable. No abdominal aortic aneurysm. Lymph nodes: Unremarkable. No enlarged lymph nodes. Urinary bladder: Unremarkable as visualized. Reproductive: Unremarkable as visualized. Bones/joints: Five non rib-bearing lumbar vertebral bodies identified. No spondylolysis or spondylolisthesis. The vertebral body heights are preserved. No acute compression fracture. The disc spaces are well preserved. No lytic or blastic osseous lesion. Incidental note is made of a sclerotic bone island in the right ilium and additional punctate bone islands in the left ilium. Soft tissues: Unremarkable. IMPRESSION: 1. No acute intra-abdominal or pelvic finding. 2. No acute osseous findings in the lumbar spine. Labs on day of discharge: Labs from last 24 hours 03/03/21 17:00 COVID-19 Source Nasal/Nares SARS-CoV-2 (PCR) Negative Preliminary micro results at discharge 03/03/21 13:05 Urine Culture - Preliminary Urine - Reflex from [facility] Medical History Kidney stones Surgical History No significant past surgical history Social History Smoking/Tobacco Use Status: Never Smoking risk assessment performed?: Yes Drug use: Never Substance use type: does not use Do you feel safe in your relationship?: Yes
--- NOTE | 2021-03-04 15:52 | PTTR_ITS ---
Date of service: 03/04/21 Time of Service: 14:35 PT Notes Visit Reasons: Intractable Low Back Pain Inpatient Physical Therapy Treatment Note [facility] Date: 03/04/2021 PRECAUTIONS: Back pain SUBJECTIVE: Amilcar is pleasant and agreeable to participating in PT. He states that he feels he will be able to function at home. He reports that heat is helping ease his back pain. He reports that the pain migrates to the lumbar- sacral area with positional changes, although is located in the thoracic region while he is supine. OBJECTIVE: Patient ends with Aqua-K heating pad to thoracic spine. PAIN: Patient c/o significant pain in R thoracic paraspinals, easing with manual therapy. Please see subjective for more pain details. BED MOBILITY/TRANSFERS Rolling L/R: S (following instruction for log rolling technique) Supine-sit: S Sit-supine: S Sit-stand: S Stand-sit: S GAIT Assistive Device: FWW Weight bearing: Full Assist: S Distance: 50' x2 THEREX: Patient was issued HEP including PPT, SKTC stretch, SLR, and bent-knee fallouts. MANUAL THERAPY: With patient in L side-lying, perform gentle STM to R thoracic paraspinals. Patient is sensitive to touch, indicating significant pain with light pressure, easing with continued STM and eventually tolerating TPR techniques to the area. STAIRS: Up/down 3x4 and 2x6 using B rail and a step-to pattern with cueing for sequence ASSESSMENT: Patient tolerated session with complaints of pain, migrating from thoracic spine area to lumbar-sacral area with positional changes. He indicates some symptom relief with manual therapy, as well as with heat. PLAN: Discharge to home later today, per provider, with FWW and recommended outpatient PT follow-up. TREATMENT CODE/TIME: 40 minutes; 01990 x3 (14:35)
--- NOTE | 2021-03-04 17:22 | CMDISCH_ITS ---
- If Service Date Differs Date of service: 03/04/21 Time of Service: 17:22 LACE Index Scoring Tool - Questions: Length of Stay (in days): 1 Acuity (Admit via E.D.?): Yes E.D. Visits: 1 - Answers: Total Score: 5 Risk of Readmission: Low Risk Care Management Discharge Reason for Hospitalization: Intractable low back pain Discharge Plan: Amilcar will be discharged home via private vehicle with family. Amilcar will follow up with out patient PT and follow up with a PCP 7-[address] discharge. Amilcar does not currently have a PCP, CM will facilitate scheduling hospital discharge follow up appointment using oncall calendar. Patient/Family Education Needs: Discharge education, limitations and follow up plan of care, including ask me three and self management.
== END 2021-03-04 16:10 | disposition home or self-care (01) ==
LOC: ER 17:03 → MS 17:38
PROVIDERS: Admitting Provider Family Medicine; Emergency Provider Physician Assistant; Visit Provider Family Medicine
DX: M54.5 Low back pain (principal); M62.830 Muscle spasm of back; Z87.442 Personal history of urinary calculi; Z79.899 Other long term (current) drug therapy; Z20.822 Contact with and (suspected) exposure to COVID-19
CPT/HCPCS: 80053; 83690; 87635; 97110; 97162; 97530; 74176; 81003; 81015; 85025; 87086; 99217; G0378; J1100; J1885; J2270; J3360

== ENCOUNTER 2021-03-09 08:25 | Emergency (ER) | payer BC, SELFPAY ==
[2021-03-09 08:30] VITALS: BP 142/90; PULSE 90; RESP 20; TEMP 36.6; O2SAT 98
[2021-03-09] MEDS: Bupivacaine 0.5% Pres-Free 30 ML VIAL (08:52)
--- NOTE | 2021-03-09 08:59 | ED.GENADUL_ITS ---
Discharge Plan Disposition Patient Disposition: HOME Condition: Stable Discharge Details Clinical Impression: Intractable back pain Primary Care Provider: None,None ED Provider: Marylu Nicholson Home Meds and New Rx's Prescriptions: New diazepam [Valium] 5 mg tablet 5 mg PO TID PRN (Reason: muscle spasm) Qty: 10 RF: 0 prednisone 20 mg tablet 40 mg PO DAILY 5 Days Qty: 10 RF: 0 lidocaine [Lidoderm] 5 % adhesive patch,medicated 1 patch topical DAILY PRN (Reason: pain) Qty: 15 RF: 0 Continued diazepam 5 mg Tablet 5 mg PO QID PRN PRNQty: 20 RF: 0 celecoxib [Celebrex] 200 mg capsule 200 mg PO BID Qty: 60 RF: 0 diclofenac sodium [Voltaren Arthritis Pain] 1 % gel 4 g topical QID Qty: 100 RF: 0 Discharge Instructions Instructions: Back Pain (ED) Additional Instructions: Your exam today continues to be most consistent with severe muscle spasms. Please encourage hydration. Please encourage ambulation. Please continue to work with physical therapy and follow their recommendations. You may continue with the diclofenac, celebrex, tylenol, heat/ice, massage. Refill of your Valium has also been sent to the pharmacy to help with muscle spasm. Prescription for steroids has also been sent to help with any inflammatory source of your discomfort. You were given your dose today and do not need another dose tomorrow morning. Referral from care provider has been sent. I would like for you to follow-up with them this week for reevaluation. If you develop weakness, fever/chills, increased pain, change in bowel or bladder habits or other new/worsening symptoms please seek care urgently once again. Medical Decision Making <LILIANA uLong - Last Filed: 03/09/21 11:23> Patient is pleasant 41-year-old male accompanied by his , presented with chief complaint of back pain. Patient was seen here on 03/03/2021 for same complaint. States the pain is in the same location. At that time, the patient was admitted for intractable back pain. Was discharged home working with physical therapy. He states that he has been getting around better. States that yesterday he was able to furniture walk around his camper. However, he was then evaluated by a chiropractor yesterday and states that he had increased his discomfort. He states that this came on after lying on his side and moving his leg across his body to prepare for the evaluation. He is not being manipulated. No true trauma to the back. States that the time the pain increased, he felt a pop. Since then he has been having increased spasms. States the pain is now radiating down the right buttock and right posterior upper thigh. No fevers/chills. No change in urinary or bowel habits. Ambulating still with walker. Patient took 5 mg of Valium and 2 mg of Celebrex 1 hour prior to arrival with no improvement of his symptoms. Patient has been working with PT. Not yet has follow-up with primary care. Reviewed recent admission notes. On exam, he appears nontoxic. He appears uncomfortable, particularly with seated positions. He is diffusely tender along the right side of his back. No midline tenderness.. 5-5 strength equal bilaterally in the lower extremities. No saddle paresthesias. No rash, erythema or warmth. Patient is neurologically intact, no evidence of cauda equina. Exam and history is not consistent with infectious etiology. Discussed local injection with the patient. Dr. Dela Cruz evaluated the patient does feel that he may benefit from this. Please see procedure note. Consent was filled out, we discussed risk/benefits as well as expected procedural steps. Patient reports that the area that was injected, more upper right area of his discomfort where maximal pain was, pain improved. However, the lumbar pain is now more pronounced and he still has exquisite discomfort with movement. Augmented with here to treat this morning with another 5 mg of Valium, p.o. Tylenol and a lidocaine patch. We will also begin the patient on steroid burst to help with any inflammatory source of his discomfort. Patient I discussed further treatment options. At this time, he would prefer discharge home. He does appear slightly more improved. He will continue with physical therapy. Return precautions discussed. Aftercare management to schedule prompt follow-up with local primary care for continued evaluation. Will refill his Valium. He will not drive while taking this medication. All of his questions and concerns were addressed and he is in agreement with this plan. HPI <LILIANA Luong - Last Filed: 03/09/21 11:23> General Mode of arrival: ambulatory . Date/Time Provider Initiated Documentation: 03/09/21 08:26 . Limitations to Documentation: no limitations . Information obtained by: patient, family () and RN notes reviewed . History of Present Illness 41 year old M presents to the emergency department with the chief complaint of back pain, described as severe and similar to prior episodes, with intensity rated at 8. Quality is described as aching, sharp and constant, and is localized to the back. Patient extremity (RLE to buttock and upper posterior thigh). Patient started experiencing this day(s) (has been constant since discharge but increased since yesterday) and it has been constant. Immobilization improves symptom(s), Movement worsens symptoms . Patient notes no other symptoms.. Patient did receive the following treatments prior to arrival, NSAID and other (valium) Related Data Home Medications Medication Instructions Recorded Confirmed celecoxib [Celebrex] 200 mg PO BID #60 cap 03/04/21 03/09/21 diazepam 5 mg PO QID PRN PRN #20 tab 03/04/21 03/09/21 diclofenac sodium [Voltaren 4 g TOPICAL QID #100 g 03/04/21 03/09/21 Arthritis Pain] diazepam [Valium] 5 mg PO TID PRN #10 tab 03/09/21 lidocaine [Lidoderm] 1 patch TOPICAL DAILY PRN #15 ea 03/09/21 prednisone 40 mg PO DAILY 5 Days #10 tab 03/09/21 Previous Rx's Medication Instructions Recorded celecoxib [Celebrex] 200 mg PO BID #60 cap 03/04/21 diazepam 5 mg PO QID PRN PRN #20 tab 03/04/21 diclofenac sodium [Voltaren 4 g TOPICAL QID #100 g 03/04/21 Arthritis Pain] diazepam [Valium] 5 mg PO TID PRN #10 tab 03/09/21 lidocaine [Lidoderm] 1 patch TOPICAL DAILY PRN #15 ea 03/09/21 prednisone 40 mg PO DAILY 5 Days #10 tab 03/09/21 Allergies Allergy/AdvReac Type Severity Reaction Status Date / Time fish Allergy Intermediate Nausea Uncoded 03/09/21 08:34 General Stated Complaint: Nk/Back Pain HEIDY: 3 Review of Systems <LILIANA Luong - Last Filed: 03/09/21 11:23> Constitutional Constitutional: Reports as per HPI, Denies chills, Denies fatigue, Denies fever(s), Denies frequent falls and Denies headache(s) Eyes Eyes: Denies change in vision ENT Ears, Nose, Mouth, and Throat: Denies headache(s) Cardiovascular Cardiovascular: Denies chest pain, Denies dyspnea and Denies dyspnea on exertion Respiratory Respiratory: Denies cough, Denies dyspnea and Denies dyspnea on exertion Gastrointestinal Gastrointestinal: Denies abdominal pain, Denies change in bowel habits and Denies fecal incontinence Genitourinary Genitourinary: Reports as per HPI, Denies urinary hesitancy and Denies urinary incontinence Musculoskeletal Musculoskeletal: Reports as per HPI, Reports back pain, Denies muscle weakness, Denies numbness, Reports radiating pain into limb, Reports stiffness and Denies tingling Integumentary/Breasts Skin/Breast: Reports as per HPI and Denies rash Neurologic Neurologic: Reports as per HPI, Denies frequent falls, Denies headache(s), Denies localized weakness, Denies numbness, Denies radicular pain, Denies sensory deficit, Denies tingling and Denies paresthesias Endocrine Endocrine: Denies fatigue PFSH <LILIANA Luong - Last Filed: 03/09/21 11:23> Medical History Kidney stones Surgical History No significant past surgical history Social History Smoking/Tobacco Use Status: Never Smoking risk assessment performed?: Yes Alcohol Intake: current Alcohol Intake frequency: a few times a week Drug use: Never Substance use type: does not use Do you feel safe at home: Yes Do you feel safe in your relationship?: Yes Exam <LILIANA Luong - Last Filed: 03/09/21 11:23> Const General: cooperative, healthy appearing, uncomfortable, no acute distress, well developed and well groomed Nutritional Appearance: well nourished and overweight Orientation: alert and awake Eyes General: appearance normal, both eyes and all related structures Neck Neck: normal visual inspection, full ROM, no lymphadenopathy and no meningeal signs Resp Effort & Inspection: normal respiratory effort and able to speak in complete sentences Auscultation: clear to auscultation bilaterally, no rales, no rhonchi and no wheezes Cardio Rate: regular rate Rhythm: regular rhythm Heart Sounds: S1 normal and S2 normal GI Inspection: normal to inspection Palpation: soft and nontender Back/Spine/Pelvis Back: CVA tenderness (right side) Thoracic/Lumbar Spine: thoracic and lumbar spine normal to inspection, No thoraco-lumbar ROM normal (very limited secondary to pain), No straight leg raise negative bilaterally (unable to complete on either side), No mass, pain with thoraco-lumbar ROM, thoraco-lumbar ROM limited, No thoracic spinal tenderness and No lumbar spinal tenderness Pelvis: no pain with anterior-posterior compression Sacroiliac joints: on the right tender to palpation Sacrum: no tenderness Coccyx: no tenderness Back/spine/pelvis image: 1. Area of discomfort. No erythema, warmth. No rash. No midline tenderness. Patient does have palpable spasm throughout this region. Skin General skin exam: no rashes or lesions noted Neuro General: patient alert and patient awake Cognition: normal cognition Speech: speech normal Gait: gait abnormal (ambulating with walker, no evidence of focal weakness) Motor: muscle tone normal throughout, strength 5/5 throughout, no movement abnormalities noted and no fasciculations Sensory Exam: no sensory deficits noted (no saddle paresthesias) DTR's: Rt Patellar: 2+ and Lt Patellar: 2+ Extrem General: normal to inspection, full ROM, capillary refill normal, no joint enlargement, no pedal edema, no calf tenderness and abnormal gait (ambulating with walker) Psych Appearance: grossly normal and well kempt Mental Status: mental status grossly normal Speech and Movement: speech and movement normal Course <LILIANA Luogn - Last Filed: 03/09/21 11:23> Vital Signs Vital signs: Vital Signs Temperature 36.6 C 03/09/21 08:30 Pulse 90 03/09/21 08:30 Respiratory Rate 20 03/09/21 08:30 Blood Pressure 142/90 H 03/09/21 08:30 Pulse Oximetry 98 03/09/21 08:30 Temperature 36.6 C 03/09/21 08:30 Temperature Source Skin 03/09/21 08:30 Pulse 90 03/09/21 08:30 Respiratory Rate 20 03/09/21 08:30 Respiratory Effort Non-Labored 03/09/21 08:32 Blood Pressure 142/90 H 03/09/21 08:30 Blood Pressure Position Sitting 03/09/21 08:30 Pulse Oximetry 98 03/09/21 08:30 Oxygen Delivery Method Room Air 03/09/21 08:30 Oxygen Flow Rate 0 03/09/21 08:30 Pain Level 6 03/09/21 08:30 <Franky Dela Cruz DO - Last Filed: 03/09/21 09:01> Nerve Block Nerve Block 1: Time out performed: Yes Local Anesthetic: Bupivicaine 0.5% Amount of anesthesia used (mL): 5 Side: right Nerve Blocks: other (right superficial lower thoracic) Procedure Successful: Yes Patient Tolerated Procedure: well Complications: none Additional Comments: Discussed risk and benefits of procedure, area of focal tenderness was located in the right paraspinal musculature between the lower thoracic and right upper lumbar vertebra. A small aliquot of bupivacaine was placed in the affected area superficially, patient tolerated procedure well.
[2021-03-09] MEDS: Lidocaine 5% Patch 1 PATCH TP (09:21)
[2021-03-09] MEDS: Acetaminophen 500 MG TAB 1000 MG PO (09:22)
[2021-03-09] MEDS: diazePAM 5 MG TAB PO (09:22)
[2021-03-09 09:32] LABS: Bilirubin Negative (Negative); Blood Trace-lysed (Negative); Clarity Clear (Clear); Glucose Negative (Negative); Ketones Negative (Negative); Leukocyte Esterase Negative (Negative); Nitrite Negative (Negative); Urobilinogen 0.2 EU/dL (Up TO 0.2); pH 6.5 (5-8)
[2021-03-09] MEDS: predniSONE 20 MG TAB 40 MG PO (09:39)
[2021-03-09 09:41] LABS: Epithelial Cells Rare HPF (Negative); WBC 0-2 HPF (0-5)
[2021-03-09 09:42] LABS: Bacteria Rare HPF (Negative); C & S Indicated? No; Casts Negative LPF (Negative); Crystals Negative HPF (Negative); Mucus Negative (Negative)
--- NOTE | 2021-03-09 10:04 | ED.GENADUL_ITS ---
Discharge Plan Disposition Patient Disposition: HOME Condition: Stable Discharge Details Clinical Impression: Intractable back pain Primary Care Provider: None,None ED Provider: Marylu Nciholson Home Meds and New Rx's Prescriptions: New diazepam [Valium] 5 mg tablet 5 mg PO TID PRN (Reason: muscle spasm) Qty: 10 RF: 0 prednisone 20 mg tablet 40 mg PO DAILY 5 Days Qty: 10 RF: 0 lidocaine [Lidoderm] 5 % adhesive patch,medicated 1 patch topical DAILY PRN (Reason: pain) Qty: 15 RF: 0 Continued diazepam 5 mg Tablet 5 mg PO QID PRN PRNQty: 20 RF: 0 celecoxib [Celebrex] 200 mg capsule 200 mg PO BID Qty: 60 RF: 0 diclofenac sodium [Voltaren Arthritis Pain] 1 % gel 4 g topical QID Qty: 100 RF: 0 Discharge Instructions Instructions: Back Pain (ED) Additional Instructions: Your exam today continues to be most consistent with severe muscle spasms. Please encourage hydration. Please encourage ambulation. Please continue to work with physical therapy and follow their recommendations. You may continue with the diclofenac, celebrex, tylenol, heat/ice, massage. Refill of your Valium has also been sent to the pharmacy to help with muscle spasm. Prescription for steroids has also been sent to help with any inflammatory source of your discomfort. You were given your dose today and do not need another dose tomorrow morning. Referral from care provider has been sent. I would like for you to follow-up with them this week for reevaluation. If you develop weakness, fever/chills, increased pain, change in bowel or bladder habits or other new/worsening symptoms please seek care urgently once again. Medical Decision Making This second note was created in error. Please see other note from same date. Thank you HPI General Mode of arrival: ambulatory . Date/Time Provider Initiated Documentation: 03/09/21 08:26 . Limitations to Documentation: no limitations . Information obtained by: patient, family () and RN notes reviewed . History of Present Illness with intensity rated at 8. Quality is described as aching, sharp and constant, and is localized to the back. Patient extremity (right buttock/upper thigh). Patient started experiencing this week(s) and it has been constant. Immobilization improves symptom(s), Movement worsens symptoms . Patient notes no other symptoms.. Patient did receive the following treatments prior to arrival, NSAID and other (valium) Related Data Home Medications Medication Instructions Recorded Confirmed celecoxib [Celebrex] 200 mg PO BID #60 cap 03/04/21 03/09/21 diazepam 5 mg PO QID PRN PRN #20 tab 03/04/21 03/09/21 diclofenac sodium [Voltaren 4 g TOPICAL QID #100 g 03/04/21 03/09/21 Arthritis Pain] diazepam [Valium] 5 mg PO TID PRN #10 tab 03/09/21 lidocaine [Lidoderm] 1 patch TOPICAL DAILY PRN #15 ea 03/09/21 prednisone 40 mg PO DAILY 5 Days #10 tab 03/09/21 Previous Rx's Medication Instructions Recorded celecoxib [Celebrex] 200 mg PO BID #60 cap 03/04/21 diazepam 5 mg PO QID PRN PRN #20 tab 03/04/21 diclofenac sodium [Voltaren 4 g TOPICAL QID #100 g 03/04/21 Arthritis Pain] diazepam [Valium] 5 mg PO TID PRN #10 tab 03/09/21 lidocaine [Lidoderm] 1 patch TOPICAL DAILY PRN #15 ea 03/09/21 prednisone 40 mg PO DAILY 5 Days #10 tab 03/09/21 Allergies Allergy/AdvReac Type Severity Reaction Status Date / Time fish Allergy Intermediate Nausea Uncoded 03/09/21 08:34 General Stated Complaint: Nk/Back Pain HEIDY: 3 Review of Systems Constitutional Constitutional: Reports as per HPI, Denies chills, Denies fatigue, Denies fever(s), Denies frequent falls and Denies headache(s) ENT Ears, Nose, Mouth, and Throat: Denies headache(s) Cardiovascular Cardiovascular: Denies chest pain, Denies dyspnea and Denies dyspnea on exertion Respiratory Respiratory: Denies cough, Denies dyspnea and Denies dyspnea on exertion Gastrointestinal Gastrointestinal: Denies abdominal pain, Denies change in bowel habits and Denies fecal incontinence Genitourinary Genitourinary: Reports as per HPI, Denies urinary hesitancy and Denies urinary incontinence Musculoskeletal Musculoskeletal: Reports as per HPI, Reports back pain, Denies muscle weakness, Denies numbness, Reports radiating pain into limb, Reports stiffness and Denies tingling Integumentary/Breasts Skin/Breast: Reports as per HPI and Denies rash Neurologic Neurologic: Reports as per HPI, Denies frequent falls, Denies headache(s), Denies localized weakness, Denies numbness, Denies radicular pain, Denies sensory deficit, Denies tingling and Denies paresthesias Endocrine Endocrine: Denies fatigue [facility] Medical History Kidney stones Surgical History No significant past surgical history Social History Smoking/Tobacco Use Status: Never Smoking risk assessment performed?: Yes Alcohol Intake: current Alcohol Intake frequency: a few times a week Drug use: Never Substance use type: does not use Do you feel safe at home: Yes Do you feel safe in your relationship?: Yes Exam Const General: cooperative, healthy appearing, uncomfortable, no acute distress, well developed and well groomed Nutritional Appearance: well nourished and overweight Orientation: alert and awake Resp Effort & Inspection: normal respiratory effort and able to speak in complete sentences Auscultation: clear to auscultation bilaterally, no rales, no rhonchi and no wheezes Cardio Rate: regular rate Rhythm: regular rhythm Heart Sounds: S1 normal and S2 normal GI Inspection: normal to inspection Palpation: soft, no hepatosplenomegaly, not firm, no guarding and nontender Percussion: normal to percussion Back/Spine/Pelvis Back: no CVA tenderness Cervical Spine: cervical ROM normal and No cervical spinal tenderness Thoracic/Lumbar Spine: thoracic and lumbar spine normal to inspection, No thoraco-lumbar ROM normal, No straight leg raise negative bilaterally (patien unable to tolerate thisi d/t back pain on both sides), No paraspinal tenderness, thoraco-lumbar ROM limited, thoraco-lumbar spasm (along right side), No thoracic spinal tenderness and No lumbar spinal tenderness Pelvis: no pain with anterior-posterior compression Sacroiliac joints: on the right tender to palpation Skin General skin exam: no rashes or lesions noted Neuro General: patient alert and patient awake Cognition: normal cognition Speech: speech normal Gait: normal gait Motor: muscle tone normal throughout, strength 5/5 throughout, no movement abnormalities noted and no fasciculations Sensory Exam: no sensory deficits noted (no saddle paresthesias) DTR's: Rt Patellar: 2+, Lt Patellar: 2+, Rt Ankle: 2+ and Lt Ankle: 2+ Extrem General: normal to inspection, full ROM, capillary refill normal, no joint enlargement, no pedal edema, no calf tenderness and normal gait Psych Appearance: grossly normal and well kempt Mental Status: mental status grossly normal Speech and Movement: speech and movement normal Course Vital Signs Vital signs: Vital Signs Temperature 36.6 C 03/09/21 08:30 Pulse 90 03/09/21 08:30 Respiratory Rate 20 03/09/21 08:30 Blood Pressure 142/90 H 03/09/21 08:30 Pulse Oximetry 98 03/09/21 08:30 Temperature 36.6 C 03/09/21 08:30 Temperature Source Skin 03/09/21 08:30 Pulse 90 03/09/21 08:30 Respiratory Rate 20 03/09/21 08:30 Respiratory Effort Non-Labored 03/09/21 08:32 Blood Pressure 142/90 H 03/09/21 08:30 Blood Pressure Position Sitting 03/09/21 08:30 Pulse Oximetry 98 03/09/21 08:30 Oxygen Delivery Method Room Air 03/09/21 08:30 Oxygen Flow Rate 0 03/09/21 08:30 Pain Level 6 03/09/21 08:30 Lab/Test Results Lab/Test Results: Laboratory Tests Range/Units 03/09/21 09:25 Urine Color (Yellow) Yellow Urine Clarity (Clear) Clear Urine pH (5-8) 6.5 Ur Specific [place] (1.005-1.025) 1.020 Urine Protein (Negative) mg/dL Negative Urine Ketones (Negative) mg/dL Negative Urine Blood (Negative) Trace-lysed H Urine Nitrite (Negative) Negative Urine Bilirubin (Negative) Negative Urine Urobilinogen (Up TO 0.2) EU/dL 0.2 Ur Leukocyte Esterase (Negative) Negative Urine RBC (0-2) HPF 5-10 H Urine WBC (0-5) HPF 0-2 Ur Epithelial Cells (Negative) HPF Rare Urine Crystals (Negative) HPF Negative Urine Bacteria (Negative) HPF Rare Urine Casts (Negative) LPF Negative Urine Mucus (Negative) Negative Ur Culture Indicated? No Urine Glucose (Negative) mg/dL Negative
--- NOTE | 2021-03-09 10:26 | NUR.NOTE ---
referral to cm for backpain for pcp followup/establish pcp
--- NOTE | 2021-03-11 10:17 | PDOC.ERCMPRO ---
- If Service Date Differs Date of service: 03/11/21 Time of Service: 10:17 Care Management Progress Note Amilcar was seen in the ED on 03/09/21 for intractable back pain. CM is asked to assist Amilcar in establishing care with a PCP. A review of his chart reveals that he is a former patient of Aleida Sexton at [facility]. DUSTIN telephones [facility] and speaks with Margaret who advises that mAilcar has not been seen since 2007. She further states that Amilcar's mother called to make an appointment for him this morning. She was instructed to have Amilcar come to [facility] today for a follow up appointment and to have him call the office to re-establish care.
== END 2021-03-09 10:04 | disposition home or self-care (01) ==
PROVIDERS: Emergency Provider Physician Assistant
DX: M54.5 Low back pain (principal)
CPT/HCPCS: 99283; 81003; 81015; J7512

== ENCOUNTER 2021-05-23 13:07 | Outpatient (REF) | payer BC, SELFPAY ==
[2021-05-25 18:23] LABS: COVID-19 RT-PCR UVMMC Result Negative (Negative)
== END 2021-05-23 13:08 | disposition home or self-care (01) ==
LOC: LBN 13:07
PROVIDERS: Visit Provider Physician Assistant
DX: Z20.822 Contact with and (suspected) exposure to COVID-19 (principal)
CPT/HCPCS: U0003